=== PATIENT | female | born 1965 ===

== ENCOUNTER 2018-02-24 01:24 | Inpatient (IN) | payer OTHER ==
[~2018-02-24] VITALS: Ht 124.5 cm; Wt 98.2 kg
[~2018-02-24 01:24] MED LIST: ANORO ELLIPTA1 EACH; BUPROPION XL300 M1 PO; ESCITALOPRAM OX20 MG PO; PANTOPRAZOLE SO20 M1 PO; TRAZODONE HCL50 M1 PO
--- NOTE | 2018-02-24 13:39 | Admission Certification ---
Admission Certification Certification Statement - As attending physician, I certify that at the time of - admission, based on clinical presentation, severity of - symptoms, need for further diagnostic testing and - therapeutic interventions, and risk of adverse outcomes - without in-hospital treatment, in my clinical assessment, - this patient requires an acute hospital stay for a minimum - of two nights or longer. I have also considered psychsocial - factors such as support system, advanced age, financial - issues, cognitive issues, and failed out-patient treatments, - past re-admission history, safety of patient, and lack of - compliance as applicable. Specific rationale supporting this admission is: Major chest surgery with 2-3 day postoperative intensive care unit stay
--- NOTE | 2018-02-24 13:45 | Operative Report ---
Operative/Inv Procedure Report Surgery Date: 02/24/18 Name of Procedure: Right VATS upper lobe apical segmentectomy Pre-Operative Diagnosis: Multiple right lung nodules Post-Operative Diagnosis: Same Estimated Blood Loss: less than 50ml Surgeon/Mri Tech: Jodie Yap MD,Bruce Brady Anesthesia: general endotracheal tube Operative/Procedure Note Note: After placement of monitoring lines and induction of general anesthesia with double-lumen endotracheal tube was appropriate position with fiberoptic bronchoscopy. Patient was placed in left lateral decubitus position in her right chest was prepped and draped in a sterile fashion. Thoracoscope was inserted in the midaxillary line in 3 further working sites were made. The 2 nodules were isolated in the apex of the right upper lobe in the apical segment was resected with multiple firings of the Endo LASHAUN stapler. Intraoperative gross evaluation showed there to be clear margins with no evidence of tumor compromise. Dissection was done in level 4 but there were no lymph nodes found and there was some oozing so this lymph node dissection portion was aborted. Long-acting rib blocks were placed. The chest was drained with an 28 [place] chest tube placed to the apex. The lung was reinsufflated under direct vision. The Bradley thoracostomy sites were closed with deep Vicryl suture followed by running Vicryl for particular suture. The patient tolerated the procedure well and was brought to recovery room awake and extubated in stable condition. CC: Dar RODRIGUEZ,Michael Pagan
--- NOTE | 2018-02-24 15:30 | RADIOLOGY REPORT ---
EXAMINATION: XR PORTABLE CHEST CLINICAL INFORMATION: In PACU. Status post wedge resection. COMPARISON: 02/19/2018 TECHNIQUE: AP portable upright view of the chest FINDINGS: Right-sided chest tube terminates at the apex of the right hemithorax. No appreciable pneumothorax. Chain av are present in the medial aspect of the right upper lobe with surrounding airspace disease, consistent with recent wedge resection. There is slight elevation of the right minor fissure. Hazy opacification at the lung bases bilaterally likely corresponds to a combination of small effusions and atelectasis. Left cardiac margin is partially obscured, likely lingular atelectasis. Prominence the mediastinal contour is likely related to positioning. No acute osseous findings. IMPRESSION: Status post right upper lobe wedge resection. No residual pneumothorax. Chest tube terminates in the right apex. Probable small pleural effusions with associated bibasilar atelectasis.
[2018-02-24 16:00] VITALS: BP 104/70
--- NOTE | 2018-02-24 17:30 | Patient Discharge Instructions ---
Discharge Instructions General Discharge Information You had these procedures: Right Lung Wedge Resection Right Chest tube Watch for these problems: fever over 100.5 redness around or drainage from incisions shortness of breth or chest pain Acute Coronary Syndrome Inclusion Criteria At DC or during hospital stay patient has or had the following: ACS DIAGNOSIS No Discharge Core Measures Meds if any: Prescribed or Continued at Discharge Meds if any: NOT Prescribed or Continued at Discharge Congestive Heart Failure Inclusion Criteria At DC or during hospital stay patient has or had the following: CHF DIAGNOSIS No Discharge Core Measures Meds if any: Prescribed or Continued at Discharge Meds if any: NOT Prescribed or Continued at Discharge Cerebrovascular accident Inclusion Criteria At DC or during hospital stay patient has or had the following: CVA/TIA Diagnosis No Discharge Core Measures Meds if any: Prescribed or Continued at Discharge Meds if any: NOT Prescribed or Continued at Discharge Venous thromboembolism Inclusion Criteria VTE Diagnosis No VTE Type NONE VTE Confirmed by (Test) NONE Discharge Core Measures - Per Current guidelines, there needs to be overlap - treatment for the first 5 days of Warfarin therapy. - If discharged on Warfarin prior to 5 days of - overlap therapy, the patient will need to be - assessed for post discharge needs including - *Post discharge parental anticoagulation - *Warfarin and/or parental anticoagulation education - *Follow up date to check INR post discharge At least 5 days overlap therapy as Inpatient No Meds if any: Prescribed or Continued at Discharge Note: Overlap Therapy is Warfarin and Anticoagulant Meds if any: NOT Prescribed or Continued at Discharge
--- NOTE | 2018-02-24 18:29 | PN- Student ---
Eduin Valladares 02/24/181816: Subjective Subjective: Post op Check Denies shortness of breath and chest pain. denies calf pain and raising heartbeat. denies nausea and vomiting. Objective Objective: General: No acute distress. alert and oriented to time and place Pulmonary: clear to auscultation bilaterally Cardio: s1 and s2. RRR Abdomen: soft and nontender Extremities: calves soft and non tender bilaterally. wound site: dressing has small amout of sanguinous discharge, but non saturated. Chest tube put out 80 on suction. Results Results: Microbiology 02/24 1652 UPPER RESP: Surveillance Culture - RECD 02/24 1638 GI: Surveillance Culture - ORD 02/24 1200 URINE ROUT: Urine Culture - RECD Assessment/Plan Assessment: 52 year old woman post op day 0 for VATS wedge resection of right lung at apice. Patient is doing well. Plan: Continue post op Abx Continue pain contol Jenn Hardy 02/24/183: Assessment/Plan Plan: agree with above PA-S note, no air leak appreciated pain control as ordered, as per ERAS advance diet as tolerated home meds ordered nyla-operative antibiotics hep sc - dvt ppx IST / TRC f/u am labs and cxr dumont for strict i/o's overnight. d/c dumont in am will d/w
[2018-02-25] VITALS: BP 100/60
[2018-02-25 04:41] LABS: ABSOLUTE BASOPHIL COUNT 0.1 /CUMM (0.0-0.2); ABSOLUTE EOSINOPHIL COUNT 0.5 /CUMM (0.0-0.7); ABSOLUTE GRANULOCYTE CT 7.8 /CUMM (1.4-6.5); ABSOLUTE LYMPH COUNT 2.7 /CUMM (1.2-3.4); ABSOLUTE MONOCYTE COUNT 0.7 /CUMM (0.10-0.60); BASOPHIL % 0.7 % (0.0-2.0); EOSINOPHIL % 4.2 % (0-5); MEAN CORPUSCULAR HGB 26.1 PG (27.0-31.0); MEAN CORPUSCULAR HGB CONC 32.5 G/DL (33.0-37.0); MEAN CORPUSCULAR VOLUME 80.2 FL (81.0-99.0); MEAN PLATELET VOLUME 9.9 FL (7.4-10.4); PLATELET COUNT 277 /CUMM (130-400); RED BLOOD CELL CT 4.42 /CUMM (4.20-5.40); WHITE BLOOD CELL COUNT 11.8 /CUMM (4.8-10.8)
[2018-02-25 04:52] LABS: HEMATOCRIT 35.5 % (37-47)
--- NOTE | 2018-02-25 05:56 | PN- Thoracic Surgery ---
Subjective Subjective: No complaints. Reports "no pain". No shortness of breath. No chest pains. No dizziness. Not yet out of bed. Tolerating diet. No nausea. Objective Vital Signs and I&Os Vital Signs Date Time Temp Pulse Resp B/P B/P Pulse O2 O2 Flow FiO2 Mean Ox Delivery Rate 02/25 0400 95 Nasal 3.0L Cannula 02/25 0039 96 Nasal 3.0L Cannula 02/25 0000 95 Nasal 3.0L Cannula 02/25 0000 97.3 67 28 100/60 95 Nasal 3.0L Cannula 02/25 2000 92 Nasal 3.0L Cannula 02/24 1955 Nasal 3.0L Cannula 02/24 1600 94 Nasal 3.0L Cannula 02/24 1600 97.9 73 16 104/70 96 Nasal 3.0L Cannula Intake & Output 02/25 0800 02/25 0000 02/24 1600 02/24 0800 02/24 0000 02/23 1600 Intake Total 500 Output Total 140 Balance 360 Intake, IV 500 Output, Urine 140 Patient 217 lb Weight Weight Bed scale Measurement Method Physical Exam: General - alert & oriented x 3. comfortable. Lungs - course breath sounds. decreased b/l bases. chest tube in place, right chest wall. pleurovac with total of 200 mls serosang drainage since OR. no air leak appreciated. Cardiac - s1s2. reg. Abdomen - soft. nontender. - dumont drained 450mls urine overnight, less concentrated Extremities - warm bilaterally. athrombics active b/l. no calf tenderness. Current Medications: Current Medications Sig/Jordi Start time Last Medication Dose Route Stop Time Status Admin Acetaminophen 1,000 MG Q6 02/24 1800 AC 02/24 PO 1734 Acetaminophen 1,000 MG .STK-MED ONE 02/24 1114 DC IV 02/24 1115 Acetaminophen 0 .STK-MED ONE 02/24 1039 DC PO Acetaminophen 1,000 MG ONCE ONE 02/24 0945 DC PO 02/24 0946 Albuterol Sulfate 3 ML Q4 02/24 2200 AC 02/25 INH 0410 Bupropion HCl 300 MG DAILY 02/25 0900 AC PO Cefazolin Sodium 2 GM Q8H 02/25 2000 DC 02/25 N/A 1 UNIT IV 02/25 0429 0353 Celecoxib 100 MG BID 02/24 2100 AC 02/24 PO 2116 Celecoxib 200 MG ONCE ONE 02/24 0945 DC PO 02/24 0946 Dextrose/Sodium 1,000 ML .Q20H 02/24 1645 DC 02/24 Chloride IV 1736 Docusate Sodium 100 MG BID 02/24 2100 AC 02/24 PO 2116 Docusate Sodium 100 MG DAILY NEEDED PRN 02/24 1645 DC PO Escitalopram Oxalate 20 MG DAILY 02/25 0900 AC PO Fentanyl Citrate 250 MCG .STK-MED ONE 02/24 1114 DC IM 02/24 1115 Gabapentin 300 MG Q8 02/24 2200 AC 02/24 PO 2116 Gabapentin 0 .STK-MED ONE 02/24 1039 DC PO Gabapentin 600 MG ONCE ONE 02/24 0945 DC 02/24 PO 02/24 0946 1735 Heparin Sodium 5,000 UNIT Q8 02/24 2200 AC 02/24 (Porcine) SC 211 Heparin Sodium 0 .STK-MED ONE 02/24 1040 DC (Porcine) .ROUTE Heparin Sodium 5,000 UNIT ONCE ONE 02/24 0945 DC 02/24 (Porcine) SC 02/24 0946 1735 Hydromorphone HCl 2 MG .STK-MED ONE 02/24 1436 DC IM 02/24 1437 Hydromorphone HCl 2 MG .STK-MED ONE 02/24 1427 DC IM 02/24 1428 Hydromorphone HCl 2 MG .STK-MED ONE 02/24 1113 DC IM 02/24 1114 Midazolam HCl 2 MG .STK-MED ONE 02/24 1114 DC IM 02/24 1115 Omeprazole 20 MG DAILY AC 02/25 0700 AC PO Ondansetron HCl 4 MG Q6P PRN 02/24 1645 AC IV Oxycodone HCl 10 MG Q2P PRN 02/24 1645 AC PO Oxycodone HCl 5 MG Q4P PRN 02/24 1645 AC PO Polyethylene Glycol 17 GM DAILY NEEDED PRN 02/24 1645 AC PO Tiotropium [place] 1 PUF DAILY 02/25 0900 AC INH Tramadol HCl 50 MG Q6P PRN 02/24 1445 AC PO Tramadol HCl 100 MG Q6P PRN 02/24 1445 AC PO Trazodone HCl 50 MG AT BEDTIME 02/24 2100 AC 02/24 PO 2116 Results Last 48 Hours of Labs: Laboratory Tests 02/25 0400 Chemistry Sodium (137 - 145 mmol/L) 139 Potassium (3.5 - 5.1 mmol/L) 4.4 Chloride (98 - 107 mmol/L) 102 Carbon Dioxide (22 - 30 mmol/L) 28 Anion Gap (5 - 16) 9 BUN (7 - 17 mg/dL) 10 Creatinine (0.5 - 1.0 mg/dL) 0.6 Estimated GFR (>60 ml/min) > 60 Glucose (65 - 99 mg/dL) 95 Calcium (8.4 - 10.2 mg/dL) 8.9 Phosphorus (2.5 - 4.5 mg/dL) 5.1 H Magnesium (1.6 - 2.3 mg/dL) 1.7 Total Bilirubin (0.2 - 1.3 mg/dL) 0.5 AST (14 - 36 U/L) 36 ALT (9 - 52 U/L) 37 Albumin (3.5 - 5.0 g/dL) 3.1 L Hematology CBC w Diff NO MAN DIFF REQ WBC (4.8 - 10.8 /CUMM) 11.8 H RBC (4.20 - 5.40 /CUMM) 4.42 Hgb (12.0 - 16.0 G/DL) 11.6 L Hct (37 - 47 %) 35.5 L MCV (81.0 - 99.0 FL) 80.2 L MCH (27.0 - 31.0 PG) 26.1 L MCHC (33.0 - 37.0 G/DL) 32.5 L RDW (11.5 - 14.5 %) 18.0 H Plt Count (130 - 400 /CUMM) 277 MPV (7.4 - 10.4 FL) 9.9 Gran % (42.2 - 75.2 %) 66.0 Lymphocytes % (20.5 - 51.1 %) 23.0 Monocytes % (1.7 - 9.3 %) 6.1 Eosinophils % (0 - 5 %) 4.2 Basophils % (0.0 - 2.0 %) 0.7 Absolute Granulocytes (1.4 - 6.5 /CUMM) 7.8 H Absolute Lymphocytes (1.2 - 3.4 /CUMM) 2.7 Absolute Monocytes (0.10 - 0.60 /CUMM) 0.7 H Absolute Eosinophils (0.0 - 0.7 /CUMM) 0.5 Absolute Basophils (0.0 - 0.2 /CUMM) 0.1 Assessment/Plan Assessment/Plan This 52 year old female with hx copd, gerd, now POD#1 s/p right VATS, and upper lobe apical segmentectomy, for multiple right lung nodules tolerating diet. d/c iv fluids d/c dumont catheter and a-line today tylenol / tramadol / celebrex prn pain control hep sc - dvt ppx f/u labs an cxr IST / TRC home meds ordered likely waterseal this morning. possible d/c chest tube today vs tomorrow will d/w Core Measures Venous Thromboembolism VTE Risk Factors Surgery No Mechanical VTE Prophylaxis d/t N/A MechProphylax Ordered No VTE Pharm Prophylaxis d/t NA PharmProphylax ordered
[2018-02-25 08:00] VITALS: BP 98/60
--- NOTE | 2018-02-25 11:07 | RADIOLOGY REPORT ---
EXAMINATION: XR PORTABLE CHEST CLINICAL INFORMATION: Status post right-sided VATS procedure. Chest tube placement. Postoperative assessment. COMPARISON: Chest x-ray dated 02/24/2018 and 02/19/2018. TECHNIQUE: Portable AP semierect view of the chest was obtained. FINDINGS: EKG leads overlie the chest. A right apical chest tube is in place directed towards the lung apex, unchanged. No significant pneumothorax is seen. Right paratracheal soft tissue density in the medial right lung apex is again seen, unchanged, consistent with recent wedge resection. Bibasilar linear opacities is seen, most likely representing atelectasis. There may be small bilateral pleural effusions versus artifactual density related to overlapping soft tissues. No pulmonary edema or focal dense consolidation is seen. The cardiomediastinal silhouette is enlarged, unchanged. Bony structures are unremarkable. IMPRESSION: 1. No change in positioning of the right apical chest tube. No pneumothorax seen. 2. Stable postoperative changes in the right upper lobe medially. 3. Possible small bilateral pleural effusions versus hazy opacities related to overlying soft tissues. Associated bibasilar atelectasis remain similar to previous exam.
--- NOTE | 2018-02-25 13:59 | Cons- Pulmonary ---
General Information and HPI Consulting Request Date of Consult: 02/25/18 Requested By: CTS History of Present Illness: This is a lady with the history of COPD, multiple lung nodules with increasing one nodule, did quit smoking in September 2017, previous history of laparoscopic sleeve gastrectomy, morbid obesity, clinical signs and symptoms suggestive of obstructive sleep apnea, FEV1 of 1.05, DLCO 55%, previous attempted CT-guided percutaneous needle biopsy with pneumothorax, had positive hypermetabolic lesions in the right and the left side now here for a segmentectomy. Patient is doing better after surgery. No cough no wheezing. Doing better. Past history as noted. Post surgery she is doing well. Chest tube in. Does complain of pain. No cough no wheezing. Outpatient medications reviewed. Allergies/Medications Allergies: Coded Allergies: Penicillins (HIVES 02/19/18) coconut (HIVES 02/19/18) Home Med List: Bupropion HCl (Bupropion XL) 300 MG TAB.ER.24H 1 TAB PO QAM MOOD (Reported) Escitalopram Oxalate 20 MG TABLET 1 TAB PO DAILY MOOD (Reported) Pantoprazole Sodium 20 MG TABLET.DR 1 TAB PO DAILY REFLUX (Reported) Trazodone HCl 50 MG TABLET 1 TAB PO QPM SLEEP (Reported) Umeclidinium Brm/Vilanterol Tr (Anoro Ellipta 62.5-25 Mcg INH) 62.5 MCG-25 MCG/ ACTUATION BLST.W.DEV COPD (Reported) Review of Systems Review of Systems Constitutional: Reports: see HPI. Past History Medical History Respiratory: COPD Gastrointestinal: GERD Surgical History Surgical History: cholecystectomy, hysterectomy Psychosocial History Where Do You Live? Home Smoking Status: Former Smoker Exam & Diagnostic Data Last 24 Hrs of Vital Signs/I&O Vital Signs Date Time Temp Pulse Resp B/P B/P Pulse O2 O2 Flow FiO2 Mean Ox Delivery Rate 02/25 1200 Nasal 2.5L Cannula 02/25 0858 92 Nasal 4.0L Cannula 02/25 0800 Nasal 5.0L Cannula 02/25 0800 97.3 70 22 98/60 93 Nasal 5.0L Cannula 02/25 0400 95 Nasal 3.0L Cannula 02/25 0039 96 Nasal 3.0L Cannula 02/25 0000 95 Nasal 3.0L Cannula 02/25 0000 97.3 67 28 100/60 95 Nasal 3.0L Cannula 06/12 2000 92 Nasal 3.0L Cannula 02/24 1955 Nasal 3.0L Cannula 02/24 1600 94 Nasal 3.0L Cannula 02/24 1600 97.9 73 16 104/70 96 Nasal 3.0L Cannula Intake & Output 02/25 1600 02/25 0800 02/25 0000 Intake Total 1012 500 Output Total 595 140 Balance 417 360 Intake, IV 772 500 Intake, Oral 240 Output, Chest 120 Tube Drainage Output, Urine 475 140 Patient 217 lb Weight Weight Bed scale Measurement Method Last 48 Hrs of Labs/Shaun: Laboratory Tests 02/25/18 0400: Anion Gap 9, Estimated GFR > 60, Glucose 95, Calcium 8.9, Phosphorus 5.1 H, Magnesium 1.7, Total Bilirubin 0.5, AST 36, ALT 37, Albumin 3.1 L, CBC w Diff NO MAN DIFF REQ, RBC 4.42, MCV 80.2 L, MCH 26.1 L, MCHC 32.5 L, RDW 18.0 H, MPV 9.9, Gran % 66.0, Lymphocytes % 23.0, Monocytes % 6.1, Eosinophils % 4.2, Basophils % 0.7, Absolute Granulocytes 7.8 H, Absolute Lymphocytes 2.7, Absolute Monocytes 0.7 H, Absolute Eosinophils 0.5, Absolute Basophils 0.1 Assessment/Plan Impression/Plan: CARMEN Neck supple Chest Clear with chest tube abd soft No edema IMPRESSION PT with severe COPD with Fev1 around of one litre, enlarging lung nodule which is PET positive. Patient is here for wedge resection which she underwent successfully. She is doing well. Status post surgery with chest tube in with no significant air leak. COPD stable She has morbid obesity with clinical signs and symptoms of sleep apnea and she seems to be having cyclical desaturations which needs to be followed Depression and anxiety to continue medications GERD stable Depression stable Recent ongoing smoking patient counseled. PLAN Continue aggressive pulmonary toilet Chest tube management per surgery Starts Prevo 1 puff once a day As needed albuterol Resume outpatient medications including her antidepressants Proton pump inhibitor DVT prophylaxis Patient counseled about weight loss and future sleep study Consult Acknowledgment - Thank you for your consult request.
[2018-02-25 16:00] VITALS: BP 100/56
--- NOTE | 2018-02-25 17:07 | RADIOLOGY REPORT ---
EXAMINATION: XR PORTABLE CHEST CLINICAL INFORMATION: Chest tube placed to waterseal at 9:20 AM. Status post right lung wedge resection. COMPARISON: Chest x-ray from earlier today and 02/24/2018 and 02/19/2018. TECHNIQUE: Portable AP semierect view of the chest was obtained. FINDINGS: EKG leads are coiled over the chest. Right apical chest tube is unchanged in position. No pneumothorax is seen. The cardiomediastinal silhouette is enlarged, unchanged. Lungs bilaterally are symmetrically expanded and demonstrate minimal linear opacities in the lung bases bilaterally, consistent with atelectasis. Soft tissue changes in the right paratracheal region remain stable, consistent with postoperative change. No focal consolidation, significant pleural fluid, or evidence of pulmonary edema is seen. IMPRESSION: 1. No change in positioning of right apical chest tube. No pneumothorax. 2. No change in postoperative findings in the upper medial right chest. 3. Minimal bibasilar atelectasis.
[2018-02-26] VITALS: BP 110/60
--- NOTE | 2018-02-26 07:01 | RADIOLOGY REPORT ---
EXAMINATION: XR PORTABLE CHEST CLINICAL INFORMATION: Chest tube removal at 1600 hours. Status post wedge resection right lung. COMPARISON: Several prior chest x-rays, dating 02/25/2018, 02/24/2018 and 02/19/2018. TECHNIQUE: Portable frontal view of the chest was obtained. FINDINGS: EKG leads overlie the chest. The previously seen right-sided chest tube has been removed there is some patchy opacity in the right lung apex and right paratracheal soft tissues, consistent with postoperative changes from recent VATS procedure. There is a ovoid lucency seen within this density, unclear if related to aerated lung or perhaps a small pleural air locule no definable pleural line is seen. Prominence of the right minor fissure is noted, suggesting slight pleural fluid. Bibasilar atelectatic changes and mild central vascular congestion are again noted. IMPRESSION: 1. Focal lucency is seen amongst soft tissue density in the right lung apex, perhaps reflecting residual aeration in the region of postoperative atelectasis. Less likely, findings may be related to a right apical pleural fluid collection with internal air locule. 2. Mild central vascular congestion and bibasilar mild atelectatic changes noted.
--- NOTE | 2018-02-26 07:56 | PN- Student ---
See Addendum Eduin Valladares 02/26/18 0747: Subjective Subjective: Mild difficulty breathing at night, but no shortness of breath during the day. no chest pain. Has productive cough, but is unsure of sputum color or consistency. Ambulating to the bathroom. No nausea, no vomitting, no calf pain. Objective Objective: Vitals: O2 sat 92% on 5L nasal cannula Physical Exam: General: no acute distress, alert and oriented to time and place Pulmonary: coarse breath sounds, lung sounds cleared with coughing Cardio: s1 and s2, RRR Abdomen: positive bowel sounds, non tender Results Results: Laboratory Tests 02/25/18 0400: Anion Gap 9, Estimated GFR > 60, Glucose 95, Calcium 8.9, Phosphorus 5.1 H, Magnesium 1.7, Total Bilirubin 0.5, AST 36, ALT 37, Albumin 3.1 L, CBC w Diff NO MAN DIFF REQ, RBC 4.42, MCV 80.2 L, MCH 26.1 L, MCHC 32.5 L, RDW 18.0 H, MPV 9.9, Gran % 66.0, Lymphocytes % 23.0, Monocytes % 6.1, Eosinophils % 4.2, Basophils % 0.7, Absolute Granulocytes 7.8 H, Absolute Lymphocytes 2.7, Absolute Monocytes 0.7 H, Absolute Eosinophils 0.5, Absolute Basophils 0.1 Microbiology 02/24 1652 UPPER RESP: Surveillance Culture - RECD 02/24 1638 GI: Surveillance Culture - CAN Cancelled: NO SAMPLE COLLECTED 02/24 1200 URINE ROUT: Urine Culture - RES Jenn Sierra 02/26/18 0906: Assessment/Plan Plan: Pt see, agree with above PA student note CXR - no ptx Appears to have sleep apnea and decreased sats to low 80's at night even on 5LNC - resolves spontaneously. This morning 93% on 2LNC, then decreased to 84% while ambulating off oxygen. Discussed with Dr Feliciano. Pt is okay to go home with oxygen if okay with Dr Howell. Will follow up.
[2018-02-26 08:00] VITALS: BP 112/60
[2018-02-26] MEDS ORDERED: OXYCODONE HCL5 M1 PO (13:26)
--- NOTE | 2018-02-26 13:46 | PN- Pulmonary ---
Subjective HPI/Critical Care Issues: DOing well oxygen sat noted to be in the 90s Objective Current Medications: Current Medications Sig/Jordi Start time Last Medication Dose Route Stop Time Status Admin Acetaminophen 1,000 MG .STK-MED ONE 02/25 1802 DC PO 02/25 1803 Acetaminophen 1,000 MG Q6 02/24 1800 AC 02/26 PO 1126 Albuterol Sulfate 3 ML Q4 02/24 2200 AC 02/26 INH 1150 Bupropion HCl 300 MG DAILY 02/25 0900 AC 02/26 PO 0906 Celecoxib 100 MG BID 02/24 2100 AC 02/26 PO 0908 Docusate Sodium 100 MG BID 02/24 2100 AC 02/25 PO 2009 Escitalopram Oxalate 20 MG DAILY 02/25 0900 AC 02/26 PO 0906 Gabapentin 300 MG Q8 02/24 2200 AC 02/26 PO 0620 Heparin Sodium 5,000 UNIT Q8 02/24 2200 AC 02/26 (Porcine) SC 0619 Omeprazole 20 MG DAILY AC 02/25 0700 AC 02/26 PO 0618 Ondansetron HCl 4 MG Q6P PRN 02/24 1645 AC IV Oxycodone HCl 10 MG Q2P PRN 02/24 1645 AC PO Oxycodone HCl 5 MG Q4P PRN 02/24 1645 AC PO Phenol 2 SPRAY Q2P PRN 02/25 0815 AC 02/25 EXT 0918 Polyethylene Glycol 17 GM DAILY NEEDED PRN 02/24 1645 AC PO Tiotropium [place] 1 PUF DAILY 02/25 0900 AC 02/26 INH 0907 Tramadol HCl 50 MG Q6P PRN 02/24 1445 AC 02/25 PO 1420 Tramadol HCl 100 MG Q6P PRN 02/24 1445 AC 02/25 PO 2008 Trazodone HCl 50 MG AT BEDTIME 02/24 2100 AC 02/25 PO 2009 Vital Signs & I&O Last 24 Hrs of Vitals and I&O: Vital Signs Date Time Temp Pulse Resp B/P B/P Pulse O2 O2 Flow FiO2 Mean Ox Delivery Rate 02/26 1200 93 Room Air 02/26 0819 95 Nasal 2.0L Cannula 02/26 0800 Nasal 3.0L Cannula 02/26 0800 97.8 78 18 112/60 95 Nasal 3.0L Cannula 02/26 0400 92 Nasal 5.0L Cannula 02/26 0036 93 Nasal 5.0L Cannula 02/26 0000 92 Nasal 5.0L Cannula 02/26 0000 96.6 73 24 110/60 94 BIPAP 30% 02/25 Nasal 2.0L Cannula 02/25 1630 92 Nasal 4.5L Cannula 02/25 1600 97.4 72 18 100/56 93 Nasal 2.5L Cannula 02/25 1600 93 Nasal 2.5L Cannula Intake & Output 02/26 1600 02/26 0800 02/26 0000 Intake Total 200 820 Output Total 500 Balance 200 320 Intake, Oral 200 820 Number 0 Bowel Movements Output, Urine 500 Impression/Plan Impression/Plan Impression/Plan: CARMEN Neck supple Chest Clear abd soft No edema IMPRESSION PT with severe COPD with Fev1 around of one litre, enlarging lung nodule which is PET positive. Patient is here for wedge resection which she underwent successfully. She is doing well. Status post surgery COPD stable She has morbid obesity with clinical signs and symptoms of sleep apnea and she seems to be having cyclical desaturations which needs to be followed Depression and anxiety to continue medications GERD stable Depression stable Recent ongoing smoking patient counseled. PLAN IF sat is more than 90 at rest ok to dc on room air to resume out pt inhalers To see Dr Dodge her out pt pulm md soon Continue aggressive pulmonary toilet Resume outpatient medications including her antidepressants Proton pump inhibitor DVT prophylaxis Patient counseled about weight loss and future sleep study DR Dodge has been updated
--- NOTE | 2018-03-17 08:37 | Surgical Discharge Summary ---
Visit Information Visit Dates Admission Date: 02/24/18 Discharge Date: 02/26/18 History of Present Illness Chief Complaint: Patient is a 52-year-old woman with right apical lung nodules admitted for elective resection for diagnostic and therapeutic purposes. Medical History Respiratory: COPD Gastrointestinal: GERD History of MRSA: No History of VRE: No History of CDIFF: No Isolation History: Standard Surgical History Pertinent Surgical History: cholecystectomy, hysterectomy Psychosocial History Where Do You Live? Home Who Do You Live With? Patient/Self What is Your Primary Language? Kyr[place]z Review of Systems: Negative Hospital Course Course Attending Physician: Jodie Yap MD,Bruce Peter Primary Care Physician: Samuel Hook MD Hospital Course: She came in on 02/24/2014 and underwent right apical segmentectomy as a thoracoscopic procedure. Dissection was done in the mediastinum but no lymph nodes were discovered. Patient was admitted to the intensive care unit postoperatively. Her chest tube was removed on postoperative day #1 and by postoperative day #2 she was doing well with pain control ambulation and tolerating an oral diet. She was discharged home at that point with follow-up scheduled in 2 weeks. Final pathology has shown synchronous right upper lobe adenocarcinomas. 1 of the tumors is a stage Ia lung cancer and the other tumor is a stage Ib lung cancer Allergies: Coded Allergies: Penicillins (HIVES 02/19/18) coconut (HIVES 02/19/18) Significant Procedures: Right VATS apical segmentectomy 02/24/2018 Disposition Summary Disposition Principal Diagnosis: Right upper lobe synchronous lung cancer stage Ia and stage Ib Additional Diagnosis: COPD emphysema Discharge Disposition: home or self care Discharge Instructions General Discharge Information Code Status: Full Code Patient's Diet: Usual Patient's Activity: As tolerated no restrictions Follow-Up Instructions/Appts: 2 weeks with a chest x-ray in the office Medications at Discharge Discharge Medications: Continue taking these medications: Pantoprazole Sodium (Pantoprazole Sodium) 20 MG TABLET.DR 1 Tablet ORAL DAILY Comments: Last Taken: NOT GIVEN Time: Bupropion HCl (Bupropion XL) 300 MG TAB.ER.24H 1 Tablet ORAL Every Morning Comments: Last Taken: 02/26 Time: 0900 AM Trazodone HCl (Trazodone HCl) 50 MG TABLET 1 Tablet ORAL Every night Comments: Last Taken: NOT GIVEN Time: Umeclidinium Brm/Vilanterol Tr (Anoro Ellipta 62.5-25 Mcg INH) 62.5 MCG-25 MCG/ ACTUATION BLST.W.DEV Comments: Last Taken: NOT GIVEN Time: Escitalopram Oxalate (Escitalopram Oxalate) 20 MG TABLET 1 Tablet ORAL DAILY Comments: Last Taken: 02/26 Time: 0900 AM Start taking the following new medications: Oxycodone HCl (Oxycodone HCl) 5 MG TABLET 1 Tablet ORAL EVERY 4 HOURS NEEDED as needed for PAIN Qty = 15 No Refills Comments: Last Taken: NOT GIVEN Time:
== END 2018-02-26 15:30 | DRG 164 ==
LOC: SDA 01:24 → ENRESERV 14:23 → ENTRNSPT 15:50 → EDTRNSPTSTS 15:54 → EDTRNSPT 15:54 → CMPTRNSPT 16:07 → CRI 16:24 → ENTRNSPT 02-26 14:56 → EDTRNSPTSTS 02-26 15:11 → CRI 02-26 15:30 → CMPTRNSPT 02-26 15:33
PROVIDERS: Physician Assistant
PROC: 0BBC4ZZ Excision of Right Upper Lung Lobe, Percutaneous Endoscopic Approach (ICD-10-PCS; principal; 2018-02-24)
DX: C34.11 Malignant neoplasm of upper lobe, right bronchus or lung (principal); Z68.44 Body mass index [BMI] 60.0-69.9, adult; E66.01 Morbid (severe) obesity due to excess calories; J44.9 Chronic obstructive pulmonary disease, unspecified; G47.30 Sleep apnea, unspecified; F41.9 Anxiety disorder, unspecified; F32.9 Major depressive disorder, single episode, unspecified; K21.9 Gastro-esophageal reflux disease without esophagitis; Z87.891 Personal history of nicotine dependence; Z98.84 Bariatric surgery status; Z88.0 Allergy status to penicillin; Z91.018 Allergy to other foods; Z90.49 Acquired absence of other specified parts of digestive tract; Z90.710 Acquired absence of both cervix and uterus
CPT/HCPCS: CCU; 36415; 71045; 82436; 87086; C9290; J0131; J0690; J1644; J2405; J3490; J7042